=== PATIENT | female | born 1995 | race Caucasian/White ===

== ENCOUNTER 2024-05-04 09:34 | Emergency (ER) | payer MEDICAID, SELFPAY ==
[2024-05-04 09:38] VITALS: BP 127/70; PULSE 97; RESP 16; TEMP 36.4; O2SAT 96; BMI 21.2
--- NOTE | 2024-05-04 10:08 | XR_ITS ---
Examination: Complete OB ultrasound greater than 14 weeks Date and time of exam: May 04, 2024 1003 hours INDICATIONS: Positive test today, medical clearance Findings: Viable intrauterine single fetus with single amniotic sac presentation transverse head maternal right Cardiac motion 155 BPM Placenta anterior grade 1 Umbilical cord insertion 3 vessel seen Amniotic fluid index 9.6 cm Cervix 3.5 cm Ovaries obscured by bowel gas. Composite estimated gestational age based on BPD, head circumference, abdominal circumference, femur length is 21 weeks 0 days Estimated weight 374 g. Survey of intracranial anatomy, spinal anatomy, abdominal anatomy, four-chamber heart performed with no abnormalities identified. Impression: Viable intrauterine gestation transverse presentation Estimated gestational age 21 weeks 0 days.
--- NOTE | 2024-05-04 10:27 | EDNOTE_ITS ---
ED Female Urogenital RME/HPI General Chief complaint: Urogenital-Female Stated complaint: MEDICAL CLEARANCE Time Seen by Provider: 05/04/24 09:37 Arrival date/time: 05/04/24 09:34 29-year-old female who reports no significant medical problems presents emergency department today in the custody of the police department patient was taken to skilled nursing was found to be therefore they referred her to the ER for further evaluation Limitations: no limitations Review of Systems Review of Systems Systems Reviewed: All systems reviewed, normal except as documented Constitutional Constitutional: Reports system reviewed and no additional complaints, except as documented, Denies fever(s) and Denies headache(s) Eyes Eyes: Reports system reviewed and no additional complaints, except as documented and Denies blurry vision ENT Ears, Nose, Mouth, and Throat: Reports system reviewed and no additional complaints, except as documented, Denies headache(s), Denies nasal congestion and Denies nasal discharge Cardiovascular Cardiovascular: Reports system reviewed and no additional complaints, except as documented, Denies chest pain and Denies dyspnea Respiratory Respiratory: Reports system reviewed and no additional complaints, except as documented, Denies chest congestion, Denies cough and Denies dyspnea Gastrointestinal Gastrointestinal: Reports system reviewed and no additional complaints, except as documented and Denies abdominal pain Genitourinary Genitourinary: Reports system reviewed and no additional complaints, except as documented and Denies abnormal vaginal bleeding Integumentary/Breasts Skin/Breast: Reports system reviewed and no additional complaints, except as documented and Denies rash Neurologic Neurologic: Reports system reviewed and no additional complaints, except as documented, Reports as per HPI and Denies headache(s) Past Medical History Past Medical History NEUROLOGIC: Negative Neurological Disorders ED Exam General Limitations: Present no limitations General appearance: Present alert and in no apparent distress Head Head exam: Present atraumatic Eye Eye exam: Present normal appearance, PERRL and EOMI; Absent conjunctival injection ENT ENT exam: Present normal exam, normal oropharynx and mucous membranes moist Neck Neck exam: Present normal inspection, full ROM and trachea midline Chest Chest inspection: Present normal inspection and symmetric chest wall rise Respiratory Respiratory exam: Present normal lung sounds bilaterally; Absent respiratory distress Cardiovascular Cardiovascular exam: Present regular rate, normal rhythm and normal heart sounds Abdominal Exam Abdominal exam: Present soft and normal bowel sounds; Absent distention, tenderness, guarding, rebound or rigidity Extremities Exam Extremities exam: Present normal inspection and full ROM Back Exam Back exam: Present normal inspection and full ROM Neurological Exam Neurological exam: Present alert, oriented X3 and CN II-XII intact Psychiatric Psychiatric exam: Present normal affect and normal mood Skin Skin exam: Present warm, dry, intact and normal color Course Quality Measures none Orders Category Date Time Status US OB >= 14 weeks Fetus Stat Exams 05/04/24 10:08 Completed Vital Signs Vital signs: Vital Signs Temperature 97.5 F 05/04/24 09:38 Pulse Rate 97 05/04/24 09:38 Respiratory Rate 16 05/04/24 09:38 Blood Pressure 127/70 05/04/24 09:38 Pulse Oximetry (%) 96 05/04/24 09:38 Oxygen Delivery Method Room Air 05/04/24 09:38 O2 saturation 96% room air Urogenital - Female MDM Narrative MDM Narrative:: 29-year-old female who reports no significant medical problems presents emergency department today in the custody of the police department patient was taken to skilled nursing was found to be therefore they referred her to the ER for further evaluation Patient GCS 15 answers all questions appropriately On exam patient well-appearing does not appear ill or toxic patient dynamically stable Ultrasound obtained patient is 21 weeks patient has no vaginal bleeding no pelvic pain reports no complaints Consultation: I spoke with my attending did not feel the patient needs to be seen upstairs in the OB department as the patient has no vaginal bleeding no pelvic pain and no medical complaints Explained to the patient she needs to start vitamins and follow-up with OB as soon as possible Patient discharged to skilled nursing no distress Patient data External records reviewed:: None Clinical information provided by:: patient Social determinants that could affect healthcare access:: none Patient has the following chronic illnesses:: None How is presenting disease/condition affected by chronic disease/condition?: no chronic disease Evaluation data The following diagnostics were reviewed and interpreted by me:: radiology exam(s) Lab and/or radiology exams considered but not ordered:: Radiology obtain Interpretation Summary: Reviewed by me Medications / Prescriptions Medications or Prescriptions considered but not ordered:: Given no meds Medication administrations:: No meds given Consultations Consultation(s) initiated? (list below): No Diagnosis Urogenital Female Differential Diagnosis: urinary tract infection, bacterial vaginosis, cystitis and other (Early , threatened missed ) Most likely diagnosis given after review of the tests above:: Admission Indicated Admission indicated?: not indicated Admission Request Was there a request for admission?: No Disposition Plan Disposition Plan: Discharge Discharge Attestation Discharge Attestation: The patient and all family members were given an opportunity to ask questions and understood the discharge instructions. Discharge instructions specifically effects, indications for sooner follow up or return to the emergency department, and the expected course of current diagnosis. Patient condition: Stable Discharge Plan Plan Patient Disposition: Long-Term/Court/Law Disposition Comment: Stable Prescriptions/Referrals Referrals: No Primary/Family,Physician [Primary Care Provider] - 05/05/24 Problem List Clinical Impression: Medical clearance for incarceration, Patient/Caregiver Discharge Instructions Additional Instructions: Please follow-up with [facility] soon as possible for emergent concerns return immediately Please start care soon as possible For any bleeding or pain return immediately Print Language: Turkish Stand Alone Forms: Patti Award Info., Patient Portal Info Letter PA/IAN Supervising Physician JOHN/IAN Supervising Physician: Dr tadeo
== END 2024-05-04 10:51 ==
PROVIDERS: Emergency Provider Emergency Medicine
DX: Z02.89 Encounter for other administrative examinations (principal); Z32.01 Encounter for pregnancy test, result positive
CPT/HCPCS: 76805; 99284